=== PATIENT | female | born 1965 | race Caucasian/White ===

== ENCOUNTER 2016-05-21 08:53 | Outpatient (CLI) | payer BC ==
[2016-01-23 11:31] VITALS: BMI 42.0
[~2016-05-21 08:53] MED LIST: DICL112S2 TP; FERR159T2 PO; IMI50 PO; LORA10TA7 PO; LOSA100T15 PO; METF750T PO; NUC50 PO; PERC10 GT; SOM350 PO; TRAM50TA2 PO; TRAM50TA92 PO; VITD2000 PO
== END 2016-05-21 18:40 | disposition home or self-care (01) ==
LOC: SCT 08:53
PROVIDERS: ATTEND Internal Medicine
DX: M51.37 Other intervertebral disc degeneration, lumbosacral region (principal); M47.897 Other spondylosis, lumbosacral region; M48.06 Spinal stenosis, lumbar region
CPT/HCPCS: 72110

== ENCOUNTER 2016-06-11 10:36 | Outpatient (CLI) | payer BC ==
[~2016-06-11 10:36] MED LIST changes: -TRAM50TA92 PO
== END 2016-06-11 20:13 | disposition home or self-care (01) ==
LOC: SMI 10:36
PROVIDERS: ATTEND Internal Medicine
DX: M51.27 Other intervertebral disc displacement, lumbosacral region (principal); M43.17 Spondylolisthesis, lumbosacral region; M48.07 Spinal stenosis, lumbosacral region; M47.897 Other spondylosis, lumbosacral region; M16.9 Osteoarthritis of hip, unspecified
CPT/HCPCS: 72148; 72170-TC

== ENCOUNTER 2019-12-21 03:00 | Inpatient (IN) | payer BC, SELFPAY ==
[~2019-12-21] VITALS: Ht 167.6 cm; Wt 121.6 kg
[~2019-12-21 03:00] MED LIST changes: -LOSA100T15 PO; +LOSA100T23 PO
[2019-12-21 03:09] VITALS: BP_SYST 134
--- NOTE | 2019-12-21 03:09 | NUR ---
Patient to ER bed 7 to gown for evaluation. Side rails up. Report given to FANTA MARIN.
[2019-12-21] MEDS ORDERED: NACL 0.9% 1,000 ML IV ONE (03:14)
[2019-12-21] MEDS ORDERED: fentaNYL CITRATE/PF 100 MCG/2 ML AMP IVP ONE ×3 (03:15→08:45)
[2019-12-21] MEDS ORDERED: ONDANSETRON HCL 4 MG/2 ML VIAL IVP ONE (03:15)
--- NOTE | 2019-12-21 03:31 | NUR ---
Dr. Espinoza bedside for pt eval
--- NOTE | 2019-12-21 03:35 | NUR ---
PT BIB FAMILY TO ED C/O EPIGASTRIC ABD PAIN RADIATING TO THE BACK W/ NAUSEA SINCE 7PM, PAIN LEVEL 10/10. DR. HERNANDEZ MADE AWARE. NO OTHER COMPLAINTS AT THIS TIME VSS NO S/S OF ACUTE DISTRESS RESTING ON GURNEY RAILS UP
--- NOTE | 2019-12-21 03:43 | NUR ---
Pt taken to Radiology in stable condition
--- NOTE | 2019-12-21 03:58 | NUR ---
Neha madrigal in ED - 12/21/19 at 0413 by ASHLEY Pt taken to Radiology in stable condition
--- NOTE | 2019-12-21 04:02 | NUR ---
Pt back from Radiology, well tolerated
[2019-12-21 04:07] LABS: BILIRUBIN,URINE 1+ (NEGATIVE); BLOOD, URINE NEGATIVE (NEGATIVE); CLARITY/URINE CLEAR (CLEAR); COLOR,URINE YELLOW (YELLOW); GLUCOSE,URINE 1+ (NEGATIVE); KETONES,URINE TRACE (NEGATIVE); LEUKOCYTE ESTERASE ,URINE NEGATIVE (NEGATIVE); NITRITE, URINE NEGATIVE (NEGATIVE); PROTEIN URINE TRACE (NEGATIVE); UROBILINOGEN,URINE 0.2 (0.2-1.0)
[2019-12-21 04:09] LABS: MONOCYTES # (AUTO) 0.5 K/uL (0.0-1.0)
[2019-12-21 04:14] LABS: BASOPHILS # (AUTO) 0.1 K/uL (0.0-0.2); BASOPHILS % (AUTO) 0.5 % (0.0-2.0); EOSINOPHILS % (AUTO) 0.3 % (0.0-4.0); HEMATOCRIT 38.9 % (36-48); HEMOGLOBIN 13.3 g/dL (12.0-16.0); LYMPHOCYTES # (AUTO) 1.1 K/uL (1.0-5.5); LYMPHOCYTES % (AUTO) 9.3 % (20.5-51.5); MEAN CORPUSCULAR HEMOGLOBIN 33 pg (27-31); MEAN CORPUSCULAR HGB CONC 34 % (32-36); MEAN CORPUSCULAR VOLUME 96 fL (79.0-98.0); MONOCYTES % (AUTO) 3.7 % (1.7-9.3); NEUTROPHILS # (AUTO) 10.6 K/uL (1.8-7.7); NEUTROPHILS % (AUTO) 86.2 % (40.0-70.0); PLATELET COUNT (AUTO) 232 K/uL (130-430); RED BLOOD CELL COUNT(AUTO) 4.05 MIL/uL (4.2-6.2); RED CELL DISTRIBUTION WIDTH 12.1 % (9.0-15.0); WHITE BLOOD COUNT (AUTO) 12.3 K/uL (4.8-10.8)
[2019-12-21 04:25] LABS: CALCIUM 9.2 mg/dL (8.4-11.0); CREATININE 0.73 mg/dL (0.55-1.30); POTASSIUM 3.5 mmol/L (3.5-5.1)
[2019-12-21 04:31] LABS: ALBUMIN 3.9 g/dL (3.4-4.8); TOTAL BILIRUBIN 0.2 mg/dL (0.0-1.0)
[2019-12-21] MEDS ORDERED: KETOROLAC TROMETHAMINE 30 MG VIAL IVP ONE (04:45)
--- NOTE | 2019-12-21 05:00 | NUR ---
Dr. Espinoza speaking with Dr. Long by phone, possible adm
[2019-12-21] MEDS ORDERED: MONT10TA27 PO (05:04)
[2019-12-21] MEDS ORDERED: LOSA25TA3 PO (05:04)
--- NOTE | 2019-12-21 05:04 | NUR ---
Medication reconciliation completed with information provided by pt at the bedside. Any prior medication reconciliation on file was reviewed and corrected.
[2019-12-21] MEDS ORDERED: fentaNYL CITRATE/PF 100 MCG/2 ML AMP IVP PRN ×2 (05:15)
--- NOTE | 2019-12-21 05:42 | NUR ---
Pt has been adm under care of Dr. Long, to Tele
--- NOTE | 2019-12-21 05:50 | NUR ---
ADMISSION NOTE Received patient from ER via gurney. Patient admitted with diagnosis of INTERNAL HERNIA. Patient is awake, alert, oriented X 4. Patient oriented to hospital room, call light, toileting, pain management and safety-teach back done. Patient informed that EDI will be HER nurse and that their room number is 107A. Personal belongings checked and Belongings List documented. Call light within reach.
[2019-12-21] MEDS ORDERED: fentaNYL CITRATE/PF 100 MCG/2 ML AMP ONE (05:51)
[2019-12-21 06:06] VITALS: BP_SYST 150
--- NOTE | 2019-12-21 06:06 | NUR ---
Transfer to Tele via ACLS protocol. Licensed nurse present. IV present no signs or symptoms of infiltration.
--- NOTE | 2019-12-21 06:06 | NUR ---
Patient will be admitted to care of Dr. Long. Admitted to Tele unit. Will go to room 107A. Belongings list completed. Complete and up to date summary report printed. SBAR report to be given at bedside with opportunity for questions.
[2019-12-21] MEDS: ONDANSETRON HCL 4 MG/2 ML VIAL IVP PRN ×4 (06:21→22:36)
--- NOTE | 2019-12-21 06:40 | NUR ---
ADMISSION NOTES; took over nurse Alexander admission. pt. awake, alert and oriented. instructed on use of call light. kept NPO. came in for abdominal pain. will endorse to incoming shift for completion of admission.
--- NOTE | 2019-12-21 07:08 | NUR ---
CONSULTATION PAGED/CALLED Reason for Consultation: [] INTERNAL HERNIA Person Who was Notified: [] RAMONA Consulting Physician: [] DR Drake ABEL Meter Technician Specialty: [] GEN SURGEON Ordering Physician: [] DR BENITES
--- NOTE | 2019-12-21 07:15 | NUR ---
OPENING NOTES RECEIVED BEDSIDE SBAR FROM NIGHT RN, PATIENT IN BED, RESPIRATIONS EVEN, NON LABORED, BED IN LOW AND LOCKED POSITION, CALL LIGHT WITHIN REACH
[2019-12-21] MEDS: NACL 0.9% 1,000 ML IV SCH ×3 (07:28→17:40)
[2019-12-21 08:00] VITALS: BP_SYST 161
--- NOTE | 2019-12-21 08:00 | NUR ---
NURSE NOTE OBTAINED VS, PATIENT COMPLAINING OF 10/10 PAIN IN ABDOMEN, REPOSITIONED PATIENT, PATIENT PASSING GAS, EDUCATED PATIENT REGARDING BREATHING SLOW DEEP BREATHS, PAGED DR BENITES
--- NOTE | 2019-12-21 08:20 | NUR ---
HIGH ALERT NOTE: Called Dr. BENITES back at [phone] identified within the medical roster to verify physician authenticity. New orders received
--- NOTE | 2019-12-21 08:45 | NUR ---
NURSE NOTE DR ABEL BEDSIDE EXAMINING PATIENT
--- NOTE | 2019-12-21 08:50 | NUR ---
MD ROUNDS DR BENITES BEDSIDE EXAMINING PATIENT, NEW ORDERS RECEIVED
[2019-12-21] MEDS ORDERED: CHOLECALCIFEROL (VITAMIN D3) 2,000 UNIT TABLET PO ONE (09:00)
[2019-12-21] MEDS ORDERED: LORATADINE 10 MG TABLET PO ONE (09:00)
[2019-12-21] MEDS ORDERED: INSULIN REGULAR, HUMAN 100 UNITS/ML, 10 ML VIAL (humuLIN R) SUBCUT PRN (09:00)
[2019-12-21] MEDS ORDERED: NALOXONE HCL 0.4 MG/ML AMP (NARCAN) IVP PRN ×2 (09:00)
[2019-12-21] MEDS ORDERED: HYDROmorphone 1 MG INJ. 1 MG/ML AMPUL IVP PRN (09:00)
[2019-12-21] MEDS ORDERED: DEXTROSE 50% JECT 50 ML DISP.SYRIN IVP PRN (09:00)
[2019-12-21] MEDS ORDERED: LOSARTAN POTASSIUM 25 MG TABLET PO ONE (09:00)
[2019-12-21] MEDS ORDERED: MONTELUKAST 10 MG TABLET PO ONE (09:00)
[2019-12-21] MEDS: DIPHENHYDRAMINE INJ 50 MG/ML VIAL IVP PRN ×4 (09:17→22:37)
[2019-12-21] MEDS: HYDROmorphone 1 MG INJ. 1 MG/ML AMPUL IVP PRN ×4 (09:18→22:37)
--- NOTE | 2019-12-21 09:41 | NUR ---
IV RE-INSERTION: Complaining of pain to IV site. Restarted on Left forearm g.22. Successful after 1 attempts. Resumed current IVF , Will observe for any signs of infiltration.
--- NOTE | 2019-12-21 09:53 | NUR ---
Nutrition Update Brett Scale 18 noted. Pt admitted for internal hernia. Diet: NPO BMI: 43.3 kg/m2 RD to follow per nutrition care standards.
[2019-12-21] MEDS ORDERED: FERROUS SULFATE 325 MG TABLET.DR PO ONE (10:15)
[2019-12-21] MEDS ORDERED: LOSARTAN POTASSIUM 50 MG TABLET (COZAAR) PO ONE (10:15)
--- NOTE | 2019-12-21 10:15 | NUR ---
nurse note informed Dr. Dickson of patients allergy to IV contrast, patient to have oral contrast,
--- NOTE | 2019-12-21 10:30 | NUR ---
ORDERS INFORMED DR BENITES THAT PATIENT USES CP AT NIGHT, NEW ORDERS RECEIVED
--- NOTE | 2019-12-21 10:45 | NUR ---
NURSE NOTE SPOKE WITH RADIOLOGY THEY STATED THAT ORAL CONTRAST IS NOT CONTRAINDICATED FOR PATIENTS WITH IV CONTRAST ALLERGY
--- NOTE | 2019-12-21 10:50 | NUR ---
NURSE NOTE CALLED RESPIRATORY REGARDING PATIENTS HOME CPAP MACHINE
[2019-12-21 11:04] LABS: BILIRUBIN,URINE NEGATIVE (NEGATIVE); BLOOD, URINE NEGATIVE (NEGATIVE); CLARITY/URINE CLEAR (CLEAR); COLOR,URINE YELLOW (YELLOW); GLUCOSE,URINE 2+ (NEGATIVE); KETONES,URINE 2+ (NEGATIVE); LEUKOCYTE ESTERASE ,URINE TRACE (NEGATIVE); NITRITE, URINE NEGATIVE (NEGATIVE); PH,URINE 6.5 (5.0-8.0); PROTEIN URINE TRACE (NEGATIVE); UROBILINOGEN,URINE 0.2 (0.2-1.0)
[2019-12-21 11:15] LABS: BACTERIA,URINE MODERATE /HPF (None Seen); MUCUS,URINE 1+ /LPF (None Seen); RBC,URINE 0-3 /HPF (0-3)
--- NOTE | 2019-12-21 12:08 | NUR ---
NURSE NOTE OBTAINED PATIENTS BS, DID NOT COVER DUE TO NPO STATUS
[2019-12-21 12:49] VITALS: BP_SYST 136
[2019-12-21] MEDS ORDERED: DIATR MEGLU/DIATRIZ SOD 30 ML SOLUTION PO ONE (13:07)
--- NOTE | 2019-12-21 13:15 | NUR ---
nurse note patient complaining of pain to abdomen, repositioned patient, pillow support, dimmed lights will administer mediations
[2019-12-21] MEDS: metroNIDAZOLE 500 mg/NS 100 ML IV SCH ×2 (14:26→21:35)
--- NOTE | 2019-12-21 16:20 | NUR ---
nurse note Dr. Dickson called new orders received
[2019-12-21 16:27] VITALS: BP_SYST 131
[2019-12-21] MEDS ORDERED: GASTROGRAFIN 120 ML ONE (16:57)
--- NOTE | 2019-12-21 17:20 | NUR ---
nurse note obtained BS, did not administer insulin, patient is NPO, administered medications, patient complaining of 11/21, repositioned, hung new IVF's, in bed, respirations even non labored, bed in low and locked position
--- NOTE | 2019-12-21 19:10 | NUR ---
closing notes PROVIDED BEDSIDE SBAR TO NIGHT RN, PATIENT IN BED, RESPIRATIONS EVEN NON LABORED, BED IN LOW AND LOCKED POSITION, ENDORSED CARE TO NIGHT RN
--- NOTE | 2019-12-21 19:10 | NUR ---
OPENING NOTES Patient is resting, no signs of acute respiratory distress noted. IV site patent, dressings c/d/i, IVF running. Was endorsed that patient would like to use the CPAP machine for the night. Was endorsed that patient states that she will be discharged tomorrow. Patient ambulates with steady gait. Will continue to monitor.
[2019-12-21 20:00] VITALS: BP_SYST 152
[2019-12-21] MEDS: ZOLPIDEM TARTRATE 5 MG TABLET PO SCH (21:00)
--- NOTE | 2019-12-21 21:46 | NUR ---
Patient is resting, patient states that she does not need pain medication at this time. Will continue to monitor.
--- NOTE | 2019-12-21 22:37 | NUR ---
Patient states that she does not need ambien tonight just in case she needs to run to the restroom. Fresh water provided to patient. Will continue to monitor.
--- NOTE | 2019-12-22 00:03 | NUR ---
Patient asleep, no signs of acute respiratory distress noted, HOB elevated. Will continue to monitor.
[2019-12-22 01:35] VITALS: BP_SYST 136
[2019-12-22] MEDS: DIPHENHYDRAMINE INJ 50 MG/ML VIAL IVP PRN ×5 (02:38→20:39)
[2019-12-22] MEDS: ONDANSETRON HCL 4 MG/2 ML VIAL IVP PRN ×4 (02:39→20:39)
[2019-12-22] MEDS: HYDROmorphone 1 MG INJ. 1 MG/ML AMPUL IVP PRN ×5 (02:39→20:38)
--- NOTE | 2019-12-22 02:39 | NUR ---
Provided pain medication, patient tolerated well, patient states no nausea at this time.
--- NOTE | 2019-12-22 03:47 | NUR ---
Patient sitting up reading a book at this time. Will continue to monitor.
[2019-12-22] MEDS: NACL 0.9% 1,000 ML IV SCH ×4 (06:13→22:15)
[2019-12-22] MEDS: metroNIDAZOLE 500 mg/NS 100 ML IV SCH ×3 (06:13→23:00)
[2019-12-22] MEDS: SUMAtriptan SUCCINATE 50 MG TABLET PO PRN ×2 (06:13→18:45)
[2019-12-22 06:45] LABS: ALANINE AMINOTRANSFERASE 28 U/L (12-78); ALBUMIN 3.4 g/dL (3.4-4.8); ASPARTATE AMINOTRANSFERASE 16 U/L (10-37); BASOPHILS # (AUTO) 0.1 K/uL (0.0-0.2); BASOPHILS % (AUTO) 0.7 % (0.0-2.0); CALCIUM 8.7 mg/dL (8.4-11.0); CHLORIDE 103 mmol/L (98-107); CHOLESTEROL 138 mg/dL (<200); CREATININE 0.74 mg/dL (0.55-1.30); EOSINOPHILS # (AUTO) 0.1 K/uL (0.0-0.4); EOSINOPHILS % (AUTO) 0.7 % (0.0-4.0); GLUCOSE 143 mg/dL (70-99); HDL CHOLESTEROL 76 mg/dL (>55); HEMATOCRIT 38.9 % (36-48); HEMOGLOBIN 12.9 g/dL (12.0-16.0); LDL CHOLESTEROL 50 mg/dL (<100); LIPASE 55 U/L (73-393); LYMPHOCYTES # (AUTO) 1.7 K/uL (1.0-5.5); LYMPHOCYTES % (AUTO) 23.4 % (20.5-51.5); MEAN CORPUSCULAR HEMOGLOBIN 32 pg (27-31); MEAN CORPUSCULAR HGB CONC 33 % (32-36); MEAN CORPUSCULAR VOLUME 97 fL (79.0-98.0); MONOCYTES # (AUTO) 0.6 K/uL (0.0-1.0); NEUTROPHILS # (AUTO) 4.8 K/uL (1.8-7.7); NEUTROPHILS % (AUTO) 67.2 % (40.0-70.0); PLATELET COUNT (AUTO) 241 K/uL (130-430); POTASSIUM 3.6 mmol/L (3.5-5.1); RED BLOOD CELL COUNT(AUTO) 4.01 MIL/uL (4.2-6.2); RED CELL DISTRIBUTION WIDTH 12.4 % (9.0-15.0); SODIUM SERUM 137 mmol/L (136-145); TOTAL BILIRUBIN 0.3 mg/dL (0.0-1.0); TRIGLYCERIDES 77 mg/dL (30-150); UREA NITROGEN, BLOOD 8 mg/dL (8-21); WHITE BLOOD COUNT (AUTO) 7.2 K/uL (4.8-10.8)
--- NOTE | 2019-12-22 06:46 | NUR ---
CLOSING NOTES Patient is resting, no signs of acute respiratory distress noted. IV site patent, dressings c/d/i, IVF running. Patient ambulates with steady gait. Provided patient with medication for migraine. All needs met throughout shift. Will endorse care to oncoming shift.
[2019-12-22 07:00] LABS: GFR AFRICAN AMERICAN 105 mL/min (>90)
[2019-12-22 07:02] LABS: ANION GAP < 3 (5-15)
[2019-12-22 08:00] VITALS: BP_SYST 82
--- NOTE | 2019-12-22 08:00 | NUR ---
Opening notes: Patient is awake, alert and oriented. Breathing well on RA, not showing any signs of distress. Patient states she is having nausea and pain- pain meds, antianemics and benadryl will be given. Pts IV access is patent and infusing NS. Patient states she cannot eat much due to nausea and some diarrhea. She will be continued to be monitor throughout shift. I got a full report from the sander machine nurse. Bed is low, locked, 2 side rails are up and call light is within reach.
[2019-12-22] MEDS: LOSARTAN POTASSIUM 50 MG TABLET (COZAAR) PO SCH (08:25)
[2019-12-22] MEDS: MONTELUKAST 10 MG TABLET PO SCH (08:25)
[2019-12-22] MEDS: LORATADINE 10 MG TABLET PO SCH (08:25)
[2019-12-22] MEDS: FERROUS SULFATE 325 MG TABLET.DR PO SCH (08:25)
[2019-12-22] MEDS: CHOLECALCIFEROL (VITAMIN D3) 2,000 UNIT TABLET PO SCH (08:25)
[2019-12-22] MEDS ORDERED: LOSARTAN POTASSIUM 25 MG TABLET PO SCH (09:00)
--- NOTE | 2019-12-22 10:00 | NUR ---
Patient is watching TV, not showing signs of any distress. Pain level is now at a 3, tolerable for patient. Will continue to monitor patient. Bed is low, locked, 2 side rails are up and call light is within reach.
[2019-12-22 12:09] VITALS: BP_SYST 141
--- NOTE | 2019-12-22 12:30 | NUR ---
Patient is watching tv, eating jello, states she feels pain of 2, tolerable. Patient is not showing any signs of distress. Will continue to monitor. Bed is low, locked, 2 side rails are up and call light is within reach.
--- NOTE | 2019-12-22 14:00 | NUR ---
Patient is sleeping, not showing any signs of distress. Bed is low, locked, 2 side rails are up and call light is within reach.
[2019-12-22] MEDS: METOCLOPRAMIDE HCL 10 MG/2 ML VIAL IVP PRN ×2 (14:17→23:23)
--- NOTE | 2019-12-22 14:46 | NUR ---
Dietitian Recommendations * Recommend continuing clear liquid diet (Ensure Clear comes standard w/ current diet; provides 720 kcal/day, 24 gm protein/day) * Consider advance to soft (low fiber/bland) diet if/when medically appropriate LP, RD Please refer to Nutrition Assessment for details. Addendum: 12/22/19 at [address] Amended: Links added. Addendum: 12/22/19 at [address] CORRECTION: (Ensure Clear TID comes standard w/ current diet; provides 720 kcal/day, 24 gm protein/day)
--- NOTE | 2019-12-22 16:16 | NUR ---
Patient is watching tv, not showing any signs of distress. States Rizwan helped her a lot with the nausea. Will continue to monitor patient. Bed is low, locked, 2 side rails are up and call light is within reach.
[2019-12-22 16:17] VITALS: BP_SYST 133
--- NOTE | 2019-12-22 18:00 | NUR ---
Patient is sleeping not showing any signs of distress at this time. Bed is low, locked, 2 side rails are up and call light is within reach.
--- NOTE | 2019-12-22 18:50 | NUR ---
Patient is awake, alert and oriented. Breathing well on RA, not showing any signs of distress. Patient got diphenhydramine, pain/nause meds around the clock. Was not able to tolerate food advancement, was placed back on clear liquid diet. Pts IV access is patent and infusing NS. came by to see her today. All needs were met throughout the day. I got a full [facility] from [facility]. Bed is low, locked, 2 side rails are up and call light is within reach.
--- NOTE | 2019-12-22 19:30 | NUR ---
OPENING NOTE PATIENT IS AWAKE IN BED WATCHING TV, AOX4. NO COMPLAINTS OF PAIN AT THIS TIME. PATIENT AMBULATED STEADILY TO RESTROOM. PATIENT REPORTS EPISODES OF LOOSE STOOL. WILL CONTINUE TO MONITOR. SAFETY MEASURES IN PLACE, BED LOCKED IN LOW POSITION, CALL LIGHT IN REACH.
[2019-12-22 20:00] VITALS: BP_SYST 153
--- NOTE | 2019-12-22 21:00 | NUR ---
PAIN MEDICATIONS PATIENT REPORTS 10/10 ABDOMINAL PAIN, MEDICATED ORDERED. PATIENT TOLERATED. WILL CONTINUE TO MONITOR. BLOOD SUGAR 130 NO INSULIN COVERAGE NEEDED AT THIS TIME.
[2019-12-22] MEDS: ZOLPIDEM TARTRATE 5 MG TABLET PO SCH (22:15)
--- NOTE | 2019-12-22 23:00 | NUR ---
NAUSEA MEDICATION PATIENT COMPLAINS OF NAUSEA, MEDICATED WITH REGLAN ORDERED. PATIENT TOLERATED.
--- NOTE | 2019-12-23 00:45 | NUR ---
PAIN MEDICATION PATIENT COMPLAINS OF SEVERE ABDOMINAL PAIN, MEDICATED ORDERED. PATIENT TOLERATED. PATIENT REPORTS THE QUANTITY OF LOOSE STOOLS HAS LESSENED. REQUESTING SNACK. PROVIDED WITH CHICKEN BROTH AND JELLO. PATIENT TOLERATED.
[2019-12-23] MEDS: ONDANSETRON HCL 4 MG/2 ML VIAL IVP PRN ×2 (01:02→10:35)
[2019-12-23] MEDS: DIPHENHYDRAMINE INJ 50 MG/ML VIAL IVP PRN ×5 (01:02→21:43)
--- NOTE | 2019-12-23 04:00 | NUR ---
HEADACHE PATIENT REPORTS HEADACHE, MEDICATED ORDERED. PATIENT TOLERATED. DENIES NAUSEA AND ABDOMINAL PAIN AT THIS TIME.
[2019-12-23] MEDS: NACL 0.9% 1,000 ML IV SCH ×3 (04:19→16:42)
[2019-12-23] MEDS: SUMAtriptan SUCCINATE 50 MG TABLET PO PRN ×2 (04:19→13:54)
[2019-12-23 06:11] LABS: BASOPHILS # (AUTO) 0.1 K/uL (0.0-0.2); BASOPHILS % (AUTO) 1.3 % (0.0-2.0); EOSINOPHILS # (AUTO) 0.1 K/uL (0.0-0.4); EOSINOPHILS % (AUTO) 1.3 % (0.0-4.0); HEMATOCRIT 38.4 % (36-48); HEMOGLOBIN 12.8 g/dL (12.0-16.0); LYMPHOCYTES # (AUTO) 1.8 K/uL (1.0-5.5); LYMPHOCYTES % (AUTO) 30.1 % (20.5-51.5); MEAN CORPUSCULAR HEMOGLOBIN 32 pg (27-31); MEAN CORPUSCULAR HGB CONC 33 % (32-36); MEAN CORPUSCULAR VOLUME 97 fL (79.0-98.0); MONOCYTES # (AUTO) 0.4 K/uL (0.0-1.0); MONOCYTES % (AUTO) 7.6 % (1.7-9.3); NEUTROPHILS # (AUTO) 3.5 K/uL (1.8-7.7); NEUTROPHILS % (AUTO) 59.7 % (40.0-70.0); PLATELET COUNT (AUTO) 227 K/uL (130-430); RED BLOOD CELL COUNT(AUTO) 3.98 MIL/uL (4.2-6.2); WHITE BLOOD COUNT (AUTO) 5.9 K/uL (4.8-10.8)
--- NOTE | 2019-12-23 06:20 | NUR ---
CLOSING NOTES BLOOD SUGAR 149, NO INSULIN COVERAGE NEEDED. IV ANTIBIOTICS INFUSING, IV REMAINS PATENT WITH NO SIGNS OF INFILTRATION NOTED. PATIENT REPORTS ABDOMINAL PAIN, MEDICATED ORDERED, PATIENT TOLERATED. PATIENT DENIES ANY SIDE EFFECTS OR ADVERSE REACTIONS AFTER TAKING PAIN MEDICATION. ALL CARE NEEDS MET THROUGHOUT SHIFT. BED LOCKED IN LOW POSITION, CALL LIGHT IN REACH.
[2019-12-23] MEDS: metroNIDAZOLE 500 mg/NS 100 ML IV SCH ×3 (06:32→22:04)
[2019-12-23] MEDS: METOCLOPRAMIDE HCL 10 MG/2 ML VIAL IVP PRN ×3 (06:32→21:43)
[2019-12-23] MEDS: HYDROmorphone 1 MG INJ. 1 MG/ML AMPUL IVP PRN ×4 (06:33→21:49)
[2019-12-23 06:47] LABS: CALCIUM 8.7 mg/dL (8.4-11.0); CREATININE 0.6 mg/dL (0.55-1.30); POTASSIUM 3.5 mmol/L (3.5-5.1)
--- NOTE | 2019-12-23 07:30 | NUR ---
OPENING NOTES: RECEIVED PATIENT FROM COMPUTER PROGRAMMING SUPERVISOR NURSE. PATIENT IS AWAKE AND ALERT x4 LAYING DOWN IN BED. PATIENT IS TOLERATING OXYGEN ON ROOM AIR WITH NO SIGNS OF DISTRESS OR SHORTNESS OF BREATH NOTED. PATIENT STATES SHE HAS PAIN 3/10 WHICH IS TOLERABLE AT THE MOMENT. INFORMED PATIENT I WILL BRING HER PAIN MEDICINE WHEN AVAILABLE. PATIENT VERBALIZED UNDERSTANDING. PATIENT IN STABLE CONDITION. SAFETY, FALL, AND ASPIRATION PRECAUTIONS ARE IN PLACE. BED LOCKED IN LOWEST POSITION WITH CALL LIGHT IN REACH. WILL CONTINUE TO MONITOR PATIENT FOR ANY CHANGES.
[2019-12-23 08:02] VITALS: BP_SYST 148
[2019-12-23] MEDS: MONTELUKAST 10 MG TABLET PO SCH (08:08)
[2019-12-23] MEDS: LOSARTAN POTASSIUM 50 MG TABLET (COZAAR) PO SCH (08:09)
[2019-12-23] MEDS: LORATADINE 10 MG TABLET PO SCH (08:09)
[2019-12-23] MEDS: FERROUS SULFATE 325 MG TABLET.DR PO SCH (08:09)
[2019-12-23] MEDS: CHOLECALCIFEROL (VITAMIN D3) 2,000 UNIT TABLET PO SCH (08:10)
[2019-12-23] MEDS ORDERED: cloNIDine HCL 0.1 MG/24 HR PATCH.TDWK TD SCH (09:00)
--- NOTE | 2019-12-23 10:30 | NUR ---
RN ROUNDS/PAIN MEDS: PATIENT IS AWAKE AND ALERT x4 LAYING DOWN IN BED. PATIENT IS TOLERATING OXYGEN ON ROOM AIR WITH NO SIGNS OF DISTRESS OR SHORTNESS OF BREATH NOTED. PATIENT IS COMPLAINING OF ABDOMINAL PAIN OF 8/10. PRN PAIN MEDICATION GIVEN TO PATIENT. PATIENT TOLERATED IT WELL. PATIENT IN STABLE CONDITION. WILL CONTINUE TO MONITOR PATIENT FOR ANY CHANGES.
[2019-12-23 11:24] VITALS: BP_SYST 159
[2019-12-23] MEDS ORDERED: LACTOBACILLUS RHAMNOSUS GG 1 CAP CAPSULE PO ONE (11:45)
--- NOTE | 2019-12-23 12:15 | NUR ---
RN ROUNDS: PATIENT IS AWAKE AND ALERT x4 LAYING DOWN IN BED. PATIENT IS TOLERATING OXYGEN ON ROOM AIR WITH NO SIGNS OF DISTRESS OR SHORTNESS OF BREATH NOTED. IV SITE IS PATENT WITH NO SIGNS OF INFILTRATION AND RUNNING FLUIDS ORDERED. PATIENT IN STABLE CONDITION. WILL CONTINUE TO MONITOR PATIENT FOR ANY CHANGES.
--- NOTE | 2019-12-23 14:09 | NUR ---
RN ROUNDS/PRN MEDS: PATIENT IS AWAKE AND ALERT x4 LAYING DOWN IN BED. PATIENT COMPLAINS OF A MIGRAINE COMING ON. PATIENT REQUESTED IMITREX. WATER GIVEN TO PATIENT. PATIENT TOLERATED IT WELL. IV SITE IS PATENT WITH NO SIGNS OF INFILTRATION NOTED. PATIENT IN STABLE CONDITION. WILL CONTINUE TO MONITOR PATIENT FOR ANY CHANGES.
[2019-12-23 15:35] VITALS: BP_SYST 140
--- NOTE | 2019-12-23 16:24 | NUR ---
RN ROUNDS: PATIENT IS AWAKE AND ALERT x4 LAYING DOWN IN BED. PATIENT STATES HER PAIN IS BETTER. PATIENT IS TOLERATING OXYGEN ON ROOM AIR. IV SITE IS PATENT WITH NO SIGNS OF INFILTRATION NOTED. PATIENT IN STABLE CONDITION. WILL CONTINUE TO MONITOR PATIENT FOR ANY CHANGES.
--- NOTE | 2019-12-23 18:28 | NUR ---
CLOSING NOTES: PATIENT IS AWAKE AND ALERT x4 LAYING DOWN IN BED. PATIENT IS TOLERATING OXYGEN ON ROOM AIR WITH NO SIGNS OF DISTRESS OR SHORTNESS OF BREATH NOTED. IV SITE IS PATENT WITH NO SIGNS OF INFILTRATION NOTED. PATIENT STATES PAIN IS TOLERABLE AT THE MOMENT. PATIENT IN STABLE CONDITION. SAFETY, FALL, AND ASPIRATION PRECAUTIONS REMAINED IN PLACE THROUGHOUT THE SHIFT. BED LOCKED IN LOWEST POSITION WITH CALL LIGHT IN REACH. WILL ENDORSE PATIENT CARE TO ONCOMING LEAD CUSTODIAN NURSE.
--- NOTE | 2019-12-23 20:20 | NUR ---
RECEIVED REPORT FROM SIMI VÁSQUEZ RN AT BEDSIDE. Pt AAOX4, PT ASLEEP AT PRESENT. NAD NOTED. IVF INFUSING VIA PUMP. NAD NOTED.
[2019-12-23 20:45] VITALS: BP_SYST 133
[2019-12-23] MEDS: ZOLPIDEM TARTRATE 5 MG TABLET PO SCH (21:42)
[2019-12-23] MEDS: LACTOBACILLUS RHAMNOSUS GG 1 CAP CAPSULE PO SCH (21:42)
--- NOTE | 2019-12-23 21:50 | NUR ---
MED PASS DONE. PT W/ C/O OF PAIN 10/21 TO MID ABD RADIATING TO LEFT ABD. AREA. PT TOLERATED PO MEDS WELL. PT EDUCATION ON MIGRAINE SELF-CARE AND TRIGGERS. PT VERBALIZED SOME TRIGGERS AND QUESTIONS AND VERBALIZED UNDERSTANDING.
[2019-12-24] VITALS: BP_SYST 128
--- NOTE | 2019-12-24 00:45 | NUR ---
ON ROUNDS, PT ASLEEP AT PRESENT VOICES NO C/O PAIN OR DISCOMFORT.
--- NOTE | 2019-12-24 01:50 | NUR ---
PT OOB TO BRP W/ STEADY GAIT, NO DIFFICULTY RETURNING TO BED W/O USE OF ASSISTED DEVICE. NO C/O PAIN OR DISCOMFORT AT PRESENT.
--- NOTE | 2019-12-24 04:00 | NUR ---
PT AWAKE, VOIDED TO BED MORA, SOME URINE SPILLED ON BED, FRANK CARE DONE, W/ LINEN CHANGE. PT STATED "MAYBE I CAN GET SOME SLEEP." NAD NOTED. RESP REG NON-LABORED. Addendum: 12/24/19 at 0755 by [employer] alterations supervisor ENTRY ERROR. INCORRECT PT. INFO, PLEASE DELETE
--- NOTE | 2019-12-24 04:00 | NUR ---
ON ROUNDS PT ASLEEP , NAD NOTED
[2019-12-24] MEDS: metroNIDAZOLE 500 mg/NS 100 ML IV SCH ×2 (06:39→13:01)
[2019-12-24] MEDS: METOCLOPRAMIDE HCL 10 MG/2 ML VIAL IVP PRN (06:42)
[2019-12-24] MEDS: HYDROmorphone 1 MG INJ. 1 MG/ML AMPUL IVP PRN ×2 (06:42→12:36)
[2019-12-24] MEDS: DIPHENHYDRAMINE INJ 50 MG/ML VIAL IVP PRN ×2 (06:43→12:36)
--- NOTE | 2019-12-24 06:50 | NUR ---
MEDICATED FOR PAIN/ MALAISE W/ REGLAN, DILAUDID, AND BENADRYL. PAIN 12/21.
[2019-12-24 06:54] LABS: EOSINOPHILS # (AUTO) 0.1 K/uL (0.0-0.4); EOSINOPHILS % (AUTO) 2.5 % (0.0-4.0); HEMATOCRIT 37.4 % (36-48); HEMOGLOBIN 12.6 g/dL (12.0-16.0); LYMPHOCYTES # (AUTO) 1.5 K/uL (1.0-5.5); MEAN CORPUSCULAR HEMOGLOBIN 33 pg (27-31); MEAN CORPUSCULAR HGB CONC 34 % (32-36); MEAN CORPUSCULAR VOLUME 97 fL (79.0-98.0); MONOCYTES # (AUTO) 0.5 K/uL (0.0-1.0); MONOCYTES % (AUTO) 9.9 % (1.7-9.3); NEUTROPHILS # (AUTO) 2.6 K/uL (1.8-7.7); NEUTROPHILS % (AUTO) 55.6 % (40.0-70.0); PLATELET COUNT (AUTO) 231 K/uL (130-430); RED BLOOD CELL COUNT(AUTO) 3.88 MIL/uL (4.2-6.2); RED CELL DISTRIBUTION WIDTH 12.1 % (9.0-15.0); WHITE BLOOD COUNT (AUTO) 4.7 K/uL (4.8-10.8)
--- NOTE | 2019-12-24 07:00 | NUR ---
REPORT TO LINDSEY MARIN. PT ASLEEP NAD NOTED.
[2019-12-24 07:04] LABS: ALBUMIN 3.3 g/dL (3.4-4.8); CALCIUM 8.8 mg/dL (8.4-11.0); CREATININE 0.67 mg/dL (0.55-1.30); POTASSIUM 3.8 mmol/L (3.5-5.1); TOTAL BILIRUBIN 0.3 mg/dL (0.0-1.0)
--- NOTE | 2019-12-24 07:30 | NUR ---
OPENING NOTES: RECEIVED PATIENT FROM CIVIL TRANSPORTATION ENGINEER NURSE. PATIENT IS AWAKE AND ALERT x4 LAYING DOWN IN BED. PATIENT IS TOLERATING OXYGEN ON ROOM AIR WITH NO SIGNS OF DISTRESS OR SHORTNESS OF BREATH NOTED. PATIENT DENIES ANY PAIN AT THE MOMENT. PATIENT DOES STATE THAT SHE FEELS A MIGRAINE COMING. INFORMED PATIENT I WILL BRING HER IMITREX WITH HER MORNING MEDICATION. PATIENT VERBALIZED UNDERSTANDING. PATIENT IN STABLE CONDITION. SAFETY, FALL, AND ASPIRATION PRECAUTIONS ARE IN PLACE. BED LOCKED IN LOWEST POSITION WITH CALL LIGHT IN REACH. WILL CONTINUE TO MONITOR PATIENT FOR ANY CHANGES.
[2019-12-24] MEDS: CHOLECALCIFEROL (VITAMIN D3) 2,000 UNIT TABLET PO SCH (08:01)
[2019-12-24] MEDS: MONTELUKAST 10 MG TABLET PO SCH (08:01)
[2019-12-24] MEDS: SUMAtriptan SUCCINATE 50 MG TABLET PO PRN ×2 (08:01→18:14)
[2019-12-24] MEDS: LORATADINE 10 MG TABLET PO SCH (08:01)
[2019-12-24] MEDS: LACTOBACILLUS RHAMNOSUS GG 1 CAP CAPSULE PO SCH (08:01)
[2019-12-24] MEDS: FERROUS SULFATE 325 MG TABLET.DR PO SCH (08:01)
[2019-12-24] MEDS: LOSARTAN POTASSIUM 50 MG TABLET (COZAAR) PO SCH (08:02)
[2019-12-24 08:05] VITALS: BP_SYST 132
--- NOTE | 2019-12-24 10:13 | NUR ---
RN ROUNDS: PATIENT IS AWAKE AND ALERT x4 LAYING DOWN IN BED. PATIENT IS TOLERATING OXYGEN ON ROOM AIR WITH NO SIGNS OF DISTRESS OR SHORTNESS OF BREATH NOTED. IV SITE IS PATENT WITH NO SIGNS OF INFILTRATION NOTED. PATIENT COMPLAINS OF IT BEING HOT IN HER ROOM. INFORMED HER THAT I WILL LET ENGINEERING KNOW SO THEY CAN TURN ON THE AC. PATIENT VERBALIZED UNDERSTANDING. PATIENT IN STABLE CONDITION. WILL CONTINUE TO MONITOR PATIENT FOR ANY CHANGES.
[2019-12-24 12:09] VITALS: BP_SYST 129
--- NOTE | 2019-12-24 12:20 | NUR ---
RN ROUNDS: PATIENT IS AWAKE AND ALERT x4 LAYING DOWN IN BED. PATIENT IS TOLERATING OXYGEN ON ROOM AIR WITH NO SIGNS OF DISTRESS OR SHORTNESS OF BREATH NOTED. PATIENT STATES SHE HAS PAIN 7/10. PRN PAIN MEDICINE TO BE GIVEN WHEN AVAILABLE. PATIENT GIVEN HER LUNCH TRAY AND A PITCHER OF WATER. PATIENT STATED SHE WAS GOOD AND DID NOT NEED ANYTHING AT THE MOMENT. PATIENT IN STABLE CONDITION. WILL CONTINUE TO MONITOR PATIENT FOR ANY CHANGES.
[2019-12-24] MEDS: NACL 0.9% 1,000 ML IV SCH (12:35)
[2019-12-24] MEDS: ONDANSETRON HCL 4 MG/2 ML VIAL IVP PRN (12:36)
--- NOTE | 2019-12-24 14:41 | NUR ---
RN ROUNDS: PATIENT IS AWAKE AND ALERT x4 LAYING DOWN IN BED. PATIENT COMPLAINED OF PAIN IN IV SITE. AFTER REPOSITIONING IV THE PAIN WENT AWAY. PATIENT TOLERATED IT WELL. PATIENT STATES HER PAIN IS TOLERABLE AND SHE IS DOING GOOD AT THE MOMENT. NO SIGNS OF DISTRESS OR SHORTNESS OF BREATH NOTED. PATIENT IN STABLE CONDITION. WILL CONTINUE TO MONITOR PATIENT FOR ANY CHANGES.
--- NOTE | 2019-12-24 15:30 | NUR ---
IV INFILTRATED: IV SITE BECAME INFILTRATED. IV CATHETER REMOVED AND INTACT. NO ACTIVE BLEEDING NOTED. NEW IV SITE INSERTED INTO RIGHT FOREARM 22G. PATIENT TOLERATED IT WELL. ASEPTIC TECHNIQUE USED. SUCCESSFUL AFTER ONE ATTEMPT. WILL CONTINUE TO MONITOR.
--- NOTE | 2019-12-24 16:20 | NUR ---
RN ROUNDS: PATIENT IS AWAKE AND ALERT x4 LAYING DOWN IN BED. PATIENT DENIES ANY PAIN AT THE MOMENT. PATIENT IS TOLERATING OXYGEN ON ROOM AIR WITH NO SIGNS OF DISTRESS OR SHORTNESS OF BREATH NOTED. PATIENT IN STABLE CONDITION. WILL CONTINUE TO MONITOR PATIENT FOR ANY CHANGES.
[2019-12-24 16:28] VITALS: BP_SYST 140
[2019-12-24 16:35] VITALS: BP_SYST 140
[2019-12-24] MEDS ORDERED: LEVO500T89 PO (16:50)
[2019-12-24] MEDS ORDERED: FLA250 PO (16:51)
--- NOTE | 2019-12-24 19:05 | NUR ---
D/C Patient: Patient given medication reconciliation form and D/C instructions. Exit Care provided. Patient verbalized understanding. MD discussed with patient the results and treatment provided. Ambulatory with steady gait for discharge to home. Patient in stable condition, ID band removed. IV catheter removed, intact and dressing applied, no active bleeding. Rx of PERCOCET,FLAGYL AND LEVAQUIN given. Patient educated on pain management. All belongings sent with patient.
== END 2019-12-24 19:05 | disposition home or self-care (01) | DRG 394 ==
LOC: SED 03:00 → STU 05:06 → SMU 12-24 14:30
PROVIDERS: ADMIT Internal Medicine; ATTEND Internal Medicine
DX: K46.9 Unspecified abdominal hernia without obstruction or gangrene (principal); Z68.42 Body mass index [BMI] 45.0-49.9, adult; E44.1 Mild protein-calorie malnutrition; K56.699 Other intestinal obstruction unspecified as to partial versus complete obstruction; A04.9 Bacterial intestinal infection, unspecified; E66.01 Morbid (severe) obesity due to excess calories; J30.1 Allergic rhinitis due to pollen; R73.03 Prediabetes; G89.4 Chronic pain syndrome; M54.30 Sciatica, unspecified side; I10 Essential (primary) hypertension; Z20.828 Contact with and (suspected) exposure to other viral communicable diseases; Z90.49 Acquired absence of other specified parts of digestive tract; Z98.84 Bariatric surgery status; Z88.5 Allergy status to narcotic agent; Z88.6 Allergy status to analgesic agent; Z91.041 Radiographic dye allergy status; Z88.8 Allergy status to other drugs, medicaments and biological substances; Z79.899 Other long term (current) drug therapy; Z79.1 Long term (current) use of non-steroidal anti-inflammatories (NSAID)
CPT/HCPCS: 36415; 74250-TC; 80048; 80053; 80061; 81000-TC; 81003; 82150-TC; 82962; 83036; 83690-TC; 85025; 85610-TC; 96361; 96374; 96375; 96376; 99285; G0378; J1170; J1200; J1815; J1885; J1956; J2405; J2765; J3010; J3490; J7030; Q9963; Q9964